=== PATIENT | female | born 1955 | race Caucasian/White ===

== ENCOUNTER 2016-12-12 05:52 | Day surgery (SDC) | payer OTHER ==
[~2016-12-12] VITALS: Ht 152.4 cm; Wt 72.0 kg
[2016-12-12] VITALS (17 sets, daily range): BP systolic 112–164; BP diastolic 55–89; PULSE 66–85; RESP 10–24
[~2016-12-12 05:52] MED LIST: LACTATED RINGER'S 1,000 ML IV* SCH
[2016-12-12] MEDS ORDERED: SITA100T8 PO (06:57)
[2016-12-12] MEDS ORDERED: PIOG30TA26 PO (06:57)
[2016-12-12] MEDS ORDERED: NITR-58 PO (06:57)
[2016-12-12] MEDS ORDERED: GLIP-95 PO (06:57)
[2016-12-12] MEDS ORDERED: PROPOFOL 20 ML ONE (07:42)
[2016-12-12] MEDS ORDERED: MIDAZOLAM 1 MG/ML 2 ML INJ ONE (07:42)
[2016-12-12] MEDS ORDERED: ETOMIDATE 20 MG INJ ONE (07:42)
[2016-12-12] MEDS ORDERED: FENTAnyl 50 MCG/ML VIAL ONE (07:42)
[2016-12-12] MEDS ORDERED: LIDOCAINE 1% (MDV) 20 ML INJ ONE (07:42)
--- NOTE | 2016-12-12 07:53 | HPN ---
Date/Time of Note Date/Time of Note DATE: 12/12/16 TIME: 07:53 Interval H&P Admission Note Pt. seen H&P reviewed: No system changes INDER WOMACK MD Dec 12, 2016 07:53
[2016-12-12] MEDS ORDERED: CEFAZOLIN 1 GM INJ ONE (08:12)
[2016-12-12] MEDS ORDERED: ONDANSETRON 4 MG INJ ONE (08:18)
[2016-12-12] MEDS ORDERED: FAMOTIDINE 20 MG INJ ONE (08:19)
[2016-12-12] MEDS ORDERED: MEPERIDINE 25 MG INJ ONE (10:40)
--- NOTE | 2016-12-12 10:54 | PD.PPDC ---
ANTHROPOLOGY PROFESSOR Discharge Instruction Diagnosis Final Diagnosis: prominent endometrium Condition Patient Condition: Stable Diet Diet: Resume Regular Diet Activity/Restrictions Activity: May Shower Restrictions: No Sexual Activity Nothing in the Vagina No [place] No Tampons, douche Follow-up Follow-up with Physician: 2, Week/Weeks Return to clinic for COOPER HELPER Instructions: Fever greater than 101 Chills Worsening abdominal pain Excessive Vaginal Bleeding More than 2 pads per hour Unable to tolerate diet INDER WOMACK MD Dec 12, 2016 10:54
[2016-12-12] MEDS ORDERED: ONDANSETRON 4 MG INJ IV PRN (11:00)
[2016-12-12] MEDS ORDERED: HYDROmorphONE (0.2 MG/ML) 10ML SYG IV PRN ×2 (11:00)
[2016-12-12] MEDS ORDERED: DIPHENHYDRAMINE 50 MG INJ IV PRN (11:00)
[2016-12-12] MEDS ORDERED: PROCHLORPERAZINE 10 MG INJ IV PRN (11:00)
[2016-12-12] MEDS ORDERED: MEPERIDINE 25 MG INJ IV PRN (11:00)
--- NOTE | 2016-12-17 04:34 | OPR ---
DATE OF OPERATION: 12/12/2016 PREOPERATIVE DIAGNOSIS: Permanent endometrium. POSTOPERATIVE DIAGNOSIS: Rule out endometrial cancer. PROCEDURE: Endoscopic colon polypectomy with stereoscopic dilatation curettage. ANESTHESIA: General. ANESTHESIOLOGIST: Dr. Barraza. SURGEON: Olivia Javed MD. LOCATOR: [place] from [facility]. OPERATIVE PROCEDURE: After appropriate induction of general anesthesia, the patient was placed in dorsal lithotomy position. Peroneal area was prepped and draped in usual aseptic manner. Bimanual examination, uterus appeared to be slightly increased in size, free mobile. There was no palpable adnexa pathology. A weighted speculum was introduced into the cervix which was parous, and there is polypoid tissue protruding through the cervical os, which was removed with packing forceps counter clockwise, and the tissue was sent to the pathologist. Traditional endocervical curettage was done and additional tissue was sent. Cervix was patent for size 6 hysteroscope. So, I decided to use a size 9 hysteroscope. Cervix was dilated up to 8, and the size 9 hysteroscope was trying to be introduced in the intrauterine cavity, which was failed many times because of the shape of the scope, which was not slanted. At that time, the traditional D and C was decided with obtaining a large amount of tissue. In the middle of the curettage, introducer was introduced to nh, which was inserted without any difficulty to uterine cavity, and the fundus was visualized, and abundant tissue was noted, which was also additionally curetted by using soft tissue resector, obtaining more tissue, which was sent to the pathologist. The procedure was completed. Instruments were removed from the operative field. ADDENDUM: After the hysteroscope was introduced into the cavity with all the preparation of in-flow and out-flow with a pressure set in the usual fashion, the fundus was visualized, and both ostium were visualized. Uterine cavity was curetted in all directions using soft tissue resector, obtaining more endometrial tissue, which was sent together with material from the traditional D and C. The procedure was completed, and instruments were removed from the operative field. Sponge count was taken, which was correct. The patient tolerated the procedure well and sent to the recovery room in stable condition. Fluid deficit was zero. Dictated By: Olivia Javed MD /geno/grs /Document#: [id number]
== END 2016-12-12 11:48 | disposition home or self-care (01) ==
LOC: SDS 05:52
PROVIDERS: ATTEND Obstetrics & Gynecology
DX: C54.1 Malignant neoplasm of endometrium (principal); E11.9 Type 2 diabetes mellitus without complications
CPT/HCPCS: 58558; 82962; 88305; J0690; J2175; J2250; J2405; Z7512; Z7610; J3010

== ENCOUNTER 2017-01-17 06:12 | Inpatient (IN) | payer OTHER ==
[~2017-01-17] VITALS: Ht 152.4 cm; Wt 73.0 kg
[2017-01-17] VITALS (25 sets, daily range): BP systolic 103–134; BP diastolic 51–76; PULSE 70–106; RESP 10–29; Ht 152.4 cm; Wt 73.0 kg
[~2017-01-17 06:12] MED LIST changes: +CEFAZOLIN 2 GM/50 ML (PMX) 50 ML IVPB SCH; +D5-NS + KCL 20 MEQ 1,000 ML IV SCH; +GLIP-95 PO; -LACTATED RINGER'S 1,000 ML IV* SCH; +Metronidazole 500 MG in NS 100 ML IVPB SCH; +NITR-58 PO; +PIOG30TA26 PO; +SITA100T8 PO
[2017-01-17] MEDS ORDERED: THROMBIN 5000 UNIT VIAL ONE ×2 (07:48→11:38)
[2017-01-17] MEDS ORDERED: METHYLENE BLUE 1% 10 ML INJ ONE (07:48)
[2017-01-17] MEDS ORDERED: VASOPRESSIN 20 UNITS INJ ONE (07:48)
[2017-01-17] MEDS ORDERED: CEFAZOLIN 1 GM INJ ONE (08:03)
[2017-01-17] MEDS ORDERED: PROPOFOL 100 ML ONE (08:03)
[2017-01-17] MEDS ORDERED: metroNIDAZOLE 500 MG/NS (PMX) 100 ML IVPB ONE (08:03)
[2017-01-17] MEDS ORDERED: ROCURONIUM 50 MG INJ ONE (08:03)
[2017-01-17] MEDS ORDERED: FENTAnyl 50 MCG/ML VIAL ONE (08:04)
[2017-01-17] MEDS ORDERED: morphine SULFATE/PF (10 MG/10 ML) INJ ONE (08:04)
[2017-01-17] MEDS ORDERED: MIDAZOLAM 1 MG/ML 2 ML INJ ONE (08:04)
[2017-01-17] MEDS ORDERED: ROPIVACAINE 0.5 % 30 ML VIAL ONE (08:08)
--- NOTE | 2017-01-17 08:25 | HPN ---
Date/Time of Note Date/Time of Note DATE: 01/17/17 TIME: 08:25 Interval H&P Admission Note Pt. seen H&P reviewed: No system changes BISMARK WESLEY MD Jan 17, 2017 08:25
[2017-01-17] MEDS ORDERED: PHENYLephrine (100 MCG/ML) 5ML SYG ONE (09:41)
[2017-01-17] MEDS ORDERED: MEPERIDINE 25 MG INJ IV PRN (10:30)
[2017-01-17] MEDS ORDERED: LABETALOL HCL 20MG INJ IV PRN (10:30)
[2017-01-17] MEDS ORDERED: FENTAnyl 50 MCG/ML VIAL IV PRN ×3 (10:30)
[2017-01-17] MEDS ORDERED: HYDROmorphONE (0.2 MG/ML) 10ML SYG IV PRN ×3 (10:30)
[2017-01-17] MEDS ORDERED: hydrALAzine 20 MG INJ IV PRN (10:30)
[2017-01-17] MEDS ORDERED: DIPHENHYDRAMINE 50 MG INJ IV PRN ×2 (10:30)
[2017-01-17] MEDS ORDERED: NALOXONE (0.4 MG/ML) INJ IV PRN (10:30)
[2017-01-17] MEDS ORDERED: ALBUMIN HUMAN 5% 250 ML IV PRN (10:30)
[2017-01-17] MEDS ORDERED: ONDANSETRON 4 MG INJ IV PRN (10:30)
[2017-01-17] MEDS ORDERED: EPHEDrine SULFATE 50 MG/5 ML SYG IV PRN (10:30)
[2017-01-17] MEDS ORDERED: METOCLOPRAMIDE 10 MG INJ IV PRN (10:30)
[2017-01-17] MEDS ORDERED: NALBUPHINE HCL (10 MG/1 ML) INJ IV PRN (10:30)
[2017-01-17] MEDS ORDERED: DEXAMETHASONE 4 MG/ML 1 ML INJ ONE (11:25)
[2017-01-17] MEDS ORDERED: ONDANSETRON 4 MG INJ ONE (11:25)
[2017-01-17] MEDS ORDERED: METOCLOPRAMIDE 10 MG INJ ONE (11:25)
[2017-01-17] MEDS ORDERED: SUGAMMADEX SODIUM 200 MG/2 ML VIAL IV ONE (12:03)
[2017-01-17] MEDS ORDERED: morphine 2 MG INJ IV PRN (12:30)
--- NOTE | 2017-01-17 12:39 | OPPN ---
Date/Time of Note Date/Time of Note DATE: 01/17/17 TIME: 12:36 Operative Report Preoperative Diagnosis Endometrial cancer Postoperative Diagnosis Same with path pending, ureteral stricture, morbid obesity, adhesions morbid obesity Operation/Procedure Performed TLH/BSO/P,A LND, UD x 2 Anesthesia Type: other Estimated blood loss: 50 - 100 ml's Transfusion Required: no Grafts/Implants: none Complications: no BISMARK WESLEY MD Jan 17, 2017 12:39
[2017-01-17 13:07] LABS: BASOPHILS % 0.3 % (0.0-2.0); EOSINOPHILS # 0.1 10^3/ul (0.0-0.5); EOSINOPHILS % 0.9 % (0.0-7.0); HEMATOCRIT 32.3 % (37.0-47.0); LYMPHOCYTES # 1.1 10^3/ul (0.8-2.9); MEAN CORPUSCULAR HGB CONC 34.1 g/dl (32.0-37.0); MEAN CORPUSCULAR VOLUME 93.9 fl (82.0-101.0); MEAN PLATELET VOLUME 8.9 fl (7.4-10.4); MONOCYTE # 0.3 10^3/ul (0.3-0.9); MONOCYTES % 3.8 % (0.0-11.0); NEUTROPHILS % 82.6 % (39.0-77.0); PLATELET COUNT 202 10^3/UL (140-415); RED BLOOD COUNT 3.44 10^6/ul (4.20-5.40); RED CELL DISTRIBUTION WIDTH 11.9 % (11.5-14.5)
[2017-01-17 13:44] LABS: CALCIUM 7.7 mg/dl (8.4-10.2); CREATININE 0.62 mg/dl (0.44-1.00); POTASSIUM 3.7 mmol/L (3.5-5.1)
[2017-01-17] MEDS ORDERED: CEFAZOLIN 1 GM in SOD CHLORIDE 0.9% 100 ML IVPB SCH (14:30)
[2017-01-17] MEDS ORDERED: GLUCOSE GEL 15 GRAM TUBE BUCCAL PRN (15:00)
[2017-01-17] MEDS ORDERED: GLUCAGON 1 MG INJ IM PRN (15:00)
[2017-01-17] MEDS ORDERED: DEXTROSE 50% 50 ML SYRINGE IV PRN ×2 (15:00)
[2017-01-17] MEDS ORDERED: GLUCOSE GEL 15 GRAM TUBE PO PRN ×2 (15:00)
[2017-01-17] MEDS: metroNIDAZOLE 500 MG/NS (PMX) 100 ML IVPB SCH ×2 (16:39→22:10)
[2017-01-17] MEDS: INSULIN ASPART [NOVOLOG] 3 ML PEN SC SCH ×2 (17:55→21:37)
--- NOTE | 2017-01-17 18:44 | HP ---
DATE OF ADMISSION: 01/17/2017 HISTORY OF PRESENT ILLNESS: The patient is a 61-year-old female with history of type 2 diabetes. She was diagnosed with endometrial cancer after she underwent biopsy by Dr. 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 The patient was referred to Dr. Melvin. She was brought into the hospital today and underwent total laparoscopic hysterectomy, bilateral salpingo-oophorectomy, lymph node dissection and ureter resection. The patient is being admitted for further care. The patient denies any chest pain. No reported nausea or vomiting. The patient does not have any focal weakness. The patient is breathing comfortably. No fever or chills or wheezing postoperatively. Other than postoperative pain, the rest of the review of systems are unremarkable. PAST MEDICAL HISTORY: As stated above. SOCIAL HISTORY: No smoking. No alcohol. ALLERGIES: NONE. FAMILY HISTORY: Noncontributory. MEDICATIONS: The patient was on oral hypoglycemic. PHYSICAL EXAMINATION: GENERAL: Patient conscious, awake, alert, fairly oriented. VITAL SIGNS: Blood pressure 128/69, pulse 76, respiration 19, temperature 98, O2 sat 96 percent on 2 L. HEENT: Atraumatic, normocephalic head. TMs normal. Oropharynx clear. NECK: Supple. No thyromegaly. CHEST: Fairly clear. CV: S1, S2 normal. No murmur. ABDOMEN: The patient is status post laparoscopic surgery. EXTREMITIES: Not edematous. Pulses palpable. SKIN: Without rash. NEUROLOGIC: The patient is awake, alert, fairly oriented. DATA: Sodium 140, potassium 3.7, BUN 9, creatinine 0.6, glucose 141, calcium 7.7. WBC 9, hemoglobin 11. IMPRESSION: 1. Endometrial cancer status post surgery. 2. Diabetes mellitus, type 2. PLAN: Patient admitted on medical floor. Patient will be kept on clear liquid diet, which will be advanced as per Dr. Melvin. Continue the lactate and IV cefazolin and metronidazole as per protocol. We will start her on moderate scale NovoLog coverage. We will hold off on her oral hypoglycemics. Will continue SCD for DVT prophylaxis. Dictated By: Kendall Ibarra MD /geno/sandra /Document#: [id number]
[2017-01-17] MEDS: CEFAZOLIN 1 GM in SOD CHLORIDE 0.9% 100 ML IVPB SCH (19:30)
[2017-01-17] MEDS: CEFAZOLIN 1 GM/50 ML (PMX) 50 ML IVPB SCH (20:19)
[2017-01-17] MEDS: POTASSIUM CHLORIDE 20 MEQ in LACTATED RINGER'S 1,000 ML IV SCH (20:30)
[2017-01-18] MEDS: POTASSIUM CHLORIDE 20 MEQ in LACTATED RINGER'S 1,000 ML IV SCH ×3 (01:36→22:34)
[2017-01-18] MEDS: ACCU-CHEK XX SCH (02:00)
[2017-01-18] MEDS: CEFAZOLIN 1 GM in SOD CHLORIDE 0.9% 100 ML IVPB SCH ×2 (03:30→11:30)
[2017-01-18] MEDS: CEFAZOLIN 1 GM/50 ML (PMX) 50 ML IVPB SCH ×2 (04:01→12:33)
[2017-01-18 04:07] VITALS: BP 119/58; PULSE 94; RESP 17
[2017-01-18] MEDS: ACETAMINOPHEN 325 MG TAB PO PRN (04:12)
[2017-01-18] MEDS: metroNIDAZOLE 500 MG/NS (PMX) 100 ML IVPB SCH (05:20)
[2017-01-18 05:25] LABS: BASOPHILS % 0.2 % (0.0-2.0); EOSINOPHILS % 0.1 % (0.0-7.0); HEMATOCRIT 35.9 % (37.0-47.0); HEMOGLOBIN 11.8 g/dl (12.0-16.0); LYMPHOCYTES # 1.2 10^3/ul (0.8-2.9); MEAN CORPUSCULAR HEMOGLOBIN 30.8 pg (29.0-33.0); MEAN CORPUSCULAR HGB CONC 32.9 g/dl (32.0-37.0); MEAN CORPUSCULAR VOLUME 93.7 fl (82.0-101.0); MEAN PLATELET VOLUME 9.1 fl (7.4-10.4); MONOCYTE # 0.7 10^3/ul (0.3-0.9); MONOCYTES % 7.4 % (0.0-11.0); NEUTROPHILS % 79.9 % (39.0-77.0); PLATELET COUNT 246 10^3/UL (140-415); RED BLOOD COUNT 3.83 10^6/ul (4.20-5.40); RED CELL DISTRIBUTION WIDTH 11.9 % (11.5-14.5); WHITE BLOOD COUNT 10.1 10^3/ul (4.8-10.8)
[2017-01-18 05:47] LABS: INR 1.19; PROTIME 15.2 Sec (12.2-14.2); PT RATIO 1.2
[2017-01-18 06:07] LABS: ALBUMIN 2.8 g/dl (3.3-4.9); BILIRUBIN,INDIRECT 0.5 mg/dl (0-1.1); BILIRUBIN,TOTAL 0.5 mg/dl (0.2-1.3); CALCIUM 8.2 mg/dl (8.4-10.2); CREATININE 0.6 mg/dl (0.44-1.00); MAGNESIUM 1.8 mg/dl (1.7-2.5); TOTAL PROTEIN 5.6 g/dl (6.1-8.1)
[2017-01-18] MEDS: INSULIN ASPART [NOVOLOG] 3 ML PEN SC SCH ×4 (07:50→21:00)
[2017-01-18 08:17] VITALS: BP 112/53; RESP 19
--- NOTE | 2017-01-18 10:52 | PN ---
Date/Time of Note Date/Time of Note DATE: 01/18/17 TIME: 10:52 Assessment/Plan VTE Prophylaxis VTE Prophylaxis Intervention: other Lines/Catheters IV Catheter Type (from Nrsg): Peripheral IV Urinary Cath still in place: Yes Reason Cath still needed: skin wounds contaminated by urine Assessment/Plan Chief Complaint/Hosp Course 1. Endometrial cancer status post surgery. 2. Diabetes mellitus, type 2. Problems: Subjective 24 Hr Interval Summary Free Text/Dictation Patient complain of abdominal pain Exam/Review of Systems Vital Signs Vitals Vital Signs Date Time Temp Pulse Resp B/P Pulse Ox O2 Delivery O2 Flow Rate FiO2 01/18/17 08:17 99.0 94 19 112/53 93 01/18/17 04:07 Nasal Cannula 2.0 Intake and Output 01/17/17 01/17/17 01/18/17 15:00 23:00 07:00 Intake Total 1400 ml 850 ml 800 ml Output Total 430 ml 2400 ml 2300 ml Balance 970 ml -1550 ml -1500 ml Exam Constitutional: well developed Head: atraumatic, normocephalic Neck: supple Respiratory: diminished breath sounds Cardiovascular: regular rate and rhythm Gastrointestinal: non-tender, soft Extremities: normal pulses Results Result Diagram: 01/18/17 0425 01/18/17 0425 Results 24 hrs Laboratory Tests Test 01/17/17 12:36 01/17/17 12:52 01/17/17 17:14 01/17/17 21:33 Bedside Glucose 145 214 233 H White Blood Count 9.0 Red Blood Count 3.44 L Hemoglobin 11.0 L Hematocrit 32.3 L Mean Corpuscular Volume 93.9 Mean Corpuscular Hemoglobin 32.0 Mean Corpuscular Hemoglobin Concent 34.1 Red Cell Distribution Width 11.9 Platelet Count 202 Mean Platelet Volume 8.9 Neutrophils % 82.6 H Lymphocytes % 12.0 L Monocytes % 3.8 Eosinophils % 0.9 Basophils % 0.3 Nucleated Red Blood Cells % 0.0 Neutrophils # (Manual) 7.4 Lymphocytes # 1.1 Monocytes # 0.3 Eosinophils # 0.1 Basophils # 0.0 Nucleated Red Blood Cells # 0.0 Sodium Level 140 Potassium Level 3.7 Chloride Level 109 Carbon Dioxide Level 25 Anion Gap 10 Blood Urea Nitrogen 9 Creatinine 0.62 Glucose Level 141 Calcium Level 7.7 L Test 01/18/17 01:48 01/18/17 04:25 01/18/17 08:39 Bedside Glucose 142 128 White Blood Count 10.1 Red Blood Count 3.83 L Hemoglobin 11.8 L Hematocrit 35.9 L Mean Corpuscular Volume 93.7 Mean Corpuscular Hemoglobin 30.8 Mean Corpuscular Hemoglobin Concent 32.9 Red Cell Distribution Width 11.9 Platelet Count 246 # Mean Platelet Volume 9.1 Neutrophils % 79.9 H Lymphocytes % 12.0 L Monocytes % 7.4 Eosinophils % 0.1 Basophils % 0.2 Nucleated Red Blood Cells % 0.0 Neutrophils # (Manual) 8.0 H Lymphocytes # 1.2 Monocytes # 0.7 Eosinophils # 0.0 Basophils # 0.0 Nucleated Red Blood Cells # 0.0 Prothrombin Time 15.2 H Prothrombin Time Ratio 1.2 INR International Normalized Ratio 1.19 Sodium Level 138 Potassium Level 4.0 Chloride Level 104 Carbon Dioxide Level 28 Anion Gap 10 Blood Urea Nitrogen 7 Creatinine 0.60 Glucose Level 128 Calcium Level 8.2 L Magnesium Level 1.8 Total Bilirubin 0.5 Direct Bilirubin 0.00 Indirect Bilirubin 0.5 Aspartate Amino Transf (AST/SGOT) 22 Alanine Aminotransferase (ALT/SGPT) 36 Alkaline Phosphatase 36 L Total Protein 5.6 L Albumin 2.8 L Globulin 2.80 Albumin/Globulin Ratio 1.00 Medications Medications Current Medications Metronidazole (Flagyl 500 Mg (Pmx)) 100 ml @ 100 mls/hr Q8H IVPB Last administered on 01/18/17 05:20; Admin Dose 100 MLS/HR; Start 01/17/17 at 14:30; Stop 01/18/17 at 14:29 Morphine Sulfate (morphine) 2 mg Q2H PRN IV PAIN LEVEL 6-10; Start 01/17/17 at 12:30 Acetaminophen/ Hydrocodone Bitart ([place] (5/325)) 1 tab Q6H PRN PO PAIN LEVEL 6 -10; Start 01/17/17 at 12:30 Acetaminophen 650 mg 650 mg Q6H PRN PO PAIN AND OR ELEVATED TEMP Last administered on 01/18/17 04:12; Admin Dose 650 MG; Start 01/17/17 at 12:30 Potassium Chloride/Lactated Ringer's (KCl/Lr) 1,010 ml @ 100 mls/hr Q10H6M IV Last administered on 01/18/17 09:40; Admin Dose 100 MLS/HR; Start 01/17/17 at 15: 30 Diagnostic Test (Pha) (Accu-Chek) 1 ea 02 XX ; Start 01/18/17 at 02:00 Miscellaneous Information 1 ea NOTE XX ; Start 01/17/17 at 15:00 Glucose (Glutose) 15 gm Q15M PRN PO DECREASED GLUCOSE; Start 01/17/17 at 15:00 Glucose (Glutose) 22.5 gm Q15M PRN PO DECREASED GLUCOSE; Start 01/17/17 at 15:00 Dextrose (D50w Syringe) 25 ml Q15M PRN IV DECREASED GLUCOSE; Start 01/17/17 at 15:00 Dextrose (D50w Syringe) 50 ml Q15M PRN IV DECREASED GLUCOSE; Start 01/17/17 at 15:00 Glucagon (Glucagen) 1 mg Q15M PRN IM DECREASED GLUCOSE; Start 01/17/17 at 15:00 Glucose 15 gm 15 gm Q15M PRN BUCCAL DECREASED GLUCOSE; Start 01/17/17 at 15:00 Cefazolin Sodium 1 gm/Sodium Chloride 100 ml @ 100 mls/hr Q8H IVPB ; Start 01/17 at 19:30; Stop 01/18/17 at 19:29 Cefazolin Sodium (Ancef 1 Gm/50 ml (Pmx)) 50 ml @ 100 mls/hr Q8H IVPB Last administered on 01/18/17 04:01; Admin Dose 100 MLS/HR; Start 01/17/17 at 20:00; Stop 01/18/17 at 12:29 KRISTOPHER JUAREZ Jan 18, 2017 10:52
[2017-01-18] MEDS: HYDROCODONE/APAP (5/325) TAB PO PRN (12:33)
[2017-01-18 14:00] VITALS: BP 109/60; RESP 19
[2017-01-18 20:00] VITALS: BP 120/58; RESP 18
--- NOTE | 2017-01-18 20:40 | OPR ---
Date/Time of Note Date/Time of Note DATE: 01/18/17 TIME: 20:39 Operative Report Free Text/Dictation OPERATIVE REPORT [facility] Name: Radha Randhawa Medical Date: 01/17/17 Preoperative Diagnosis: 1-Endometrial cancer grade 3 Postoperative Diagnosis: 1-Endometrial cancer with final pathology pending 2- Morbid obesity Procedures: 1- Total laparoscopic hysterectomy with bilateral salpingoophorectomy 2- Bilateral ureteral dissection with repositioning 3- Laparoscopic pelvic and aortic lymph node dissection 4- Retroperitoneal uterine artery ligation adjacent to hypogastric artery Surgeon: Dr. Melvin Food Preparation Worker: Dr. Kaykay Yee Anaesthesia: General with regional Indications for Procedure: This 61- year old patient had a grade 3 endometrial cancer without evidence of metastatic disease preoperatively and after discussions of options with risks and benefits it was determined that a laparoscopic hysterectomy with bilateral salpingoophorectomy and pelvic/aortic lymph node dissection would be completed for the purposes of treatment and possibly planning additional adjuvant therapy. The pelvic and LND was performed in lieu of final grading not being equivalent to preoperative D&C grade 18-25% of the time and frozen section not being more that 80% reliable in determining grade and depth of invasion; therefore complete staging is performed to determine postoperative management unless there is a significant contraindication. Name: Radha Randhawa Medical Intraoperative Findings and Summary of Procedure: After placing the Trocars and exploration we noted the anatomic significance of morbid obesity with significant adhesions of the adnexia to the sidewalls, more so than usual. The TLH/BSO was then performed without incident but required a ureteral dissection due to anatomic issues of the adnexia adherent to the sidewalls and distortion of retroperitoneal anatomy due to retroperitoneal anatomic distortion due to morbid obesity requiring a retroperitoneal uterine artery ligation adjacent to hypogastric artery for required hemostasis, with the laparoscopic LND being subsequently performed with a finding of grossly negative nodes pathology pending. The patient will stay a minimum of one night to observe for recovery of from anesthesia and confirm stable hemoglobin and hematocrit with the necessity of confirmation of some GI recovery and probably need an addition night as well. Findings and Procedure: After being prepped and draped in the usual manner an EEA sizer and pneumo- occluder was inserted vaginally. A 5-millimeter trocar was then placed periumbilically without incident. Subsequently, we insufflated and placed two 12- millimeter trocars laterally and a 12-millimeter trocar suprapubically, as well as an additional 5-mm trocar cephlad to the umbilicus. At this time morbid obesity was noted and with fan retractors used for exposure multiple pelvic adhesions were lysed with sharp dissection and the Omni if not adjacent to serosa. Subsequently we explored and noted a small uterus with adnexia very adherent to the sidewalls due to apparent inflammation and old scar tissue and the retroperitoneal anatomy further distorted due to morbid obesity. Initially the right round ligament was cauterized and transected with the Thunderbeat and the retroperitoneal space further opened parallel to the IP ligament and laterally with the same devise. The right ureter was identified and due to the aforementioned distortion from adherent adnexia was dissected laterally with the Omni and the endo-dissector Name: Radha [facility] while visualized with a fan retractor. After lateralizing the ureter the uterine artery was identified and clipped adjacent to the hypogastric artery due to the anatomic distortion and hypervascularity lateral to the ureter. Hence, a space was developed the broad ligament and the right IP ligament was cauterized and transected with a Thunderbeat after which the uterus was retracted medially and the bladder flap was partly developed with the Gyrus bipolar cutting forceps and the Omni. We then used a 10-mm ratcheted endo- grasper placed through the 12-mm suprapubic trocar to manipulate the uterus and with the EEA sizer uterus was retracted and left round ligament was cauterized and transected with the Thunderbeat and the retroperitoneal space further opened parallel to the IP ligament an laterally with the same devise. The left ureter was identified and due to the aforementioned distortion was dissected laterally with the Omni and the endo-dissector as done contralaterally. After lateralizing the ureter within obesity the uterine artery was identified and clipped adjacent to the hypogastric artery due to the uterine enlargement and hypervascularity lateral to the ureter. Hence, a space was developed in the broad ligament and the left IP ligament was cauterized and transected with a Thunderbeat after which the uterus was retracted medially, allowing development or the bladder flap uneventfully with a Thunderbeat and blunt dissection. Subsequently, the right uterine artery was transected with a Thunderbeat perpendicular to the distal lower uterine segment and the Cardinal ligament and utero-sacral ligament were both transected with an Omni and Thunderbeat parallel to the lower uterine segment and cervix. An identical series of steps were taken on the left side. The anterior and posterior colpotomies were accomplished with a Thunderbeat anteriorly and posteriorly, and continued around the sides as the specimen was removed through the vagina uneventfully. The vagina was closed with interrupted 0 Vicryl suture and continuous 2-0 v-lock suture. At this time the pelvic and aortic LND were completed after confirming hemostasis. Initially a fan retractor was used for exposure and secured to the Jesse arm and lymph node tissue with adipose tissue adjacent to the right external iliac artery and vein, hypogastric artery and vein, as well as obturator fossa were removed with sharp and blunt dissection, using the Thunderbeat or Gyrus bipolar Name: Radha [facility] Omni for hemostasis and lymphostasis. The real tissue was grasped and subsequently placed under tractions with the Omni and the Thunderbeat then being used for the hemostasis and lymphostasis in the process of removal. The dissection was continued to include real tissue adjacent to the common iliac vessels. The obturator nerve was identified and adjacent real tissue removed with blunt dissection, with the Thunderbeat or Gyrus bipolar Omni used for lymphostasis and hemostasis as needed. The fan retractors were adjusted in that a suprapubically placed fan retracted the broad ligament and ureter with ileum while the right lateral trocar was used for a fan to retract the cecum and ascending colon allowing any real tissue adjacent to the vena cava, as well as aorto-caval nodes to be removed using identical technique. Garment Finisher vessels were addressed with the Thunderbeat or Gyrus bipolar Omni. At this time we placed the fan retractors for contralateral exposure. Subsequently, lymph node tissue adjacent to the left external iliac artery and vein, hypogastric artery and vein, as well as obturator fossa were removed with sharp and blunt dissection, the Thunderbeat or Gyrus bipolar Omni for hemostasis and lymphostasis, with a technique identical to the right side. The dissection was continued to include real tissue adjacent to the common iliac vessels. Subsequently, the fan retractors were adjusted and any real tissue adjacent to the aorta were dissected using similar technique. After irrigating and assuring hemostasis the 12 millimeter trocars were removed and the fascia was closed with 0-vicryl using an endo-close devise. The gas was removed and the skin of all sites then closed with subcutaneous interrupted 5-0 Monocryl suture suture. The EBL was 150cc and the patient tolerated the procedure well and left the OR in good condition. Bismark Melvin M.D. Anesthesia Type: other Estimated Blood Loss: 50 - 100 ml's Transfusion Required: no Complications: no BISMARK MELVIN MD Jan 18, 2017 20:40
--- NOTE | 2017-01-18 20:42 | PN ---
Date/Time of Note Date/Time of Note DATE: 01/18/17 TIME: 20:40 Assessment/Plan VTE Prophylaxis VTE Prophylaxis Intervention: SCD's Lines/Catheters IV Catheter Type (from Nrsg): Peripheral IV Urinary Cath still in place: No Subjective 24 Hr Interval Summary Free Text/Dictation + flatus and OOB. Exam/Review of Systems Vital Signs Vitals Vital Signs Date Time Temp Pulse Resp B/P Pulse Ox O2 Delivery O2 Flow Rate FiO2 01/18/17 14:00 98.6 100 19 109/60 94 01/18/17 04:07 Nasal Cannula 2.0 Intake and Output 01/17/17 01/17/17 01/18/17 15:00 23:00 07:00 Intake Total 1400 ml 850 ml 800 ml Output Total 430 ml 2400 ml 2300 ml Balance 970 ml -1550 ml -1500 ml Exam Resp-clear CVS- NSR Abd- NT and clean Ext- NT no edema Results Result Diagram: 01/18/17 0425 01/18/17 0425 Results 24 hrs Laboratory Tests Test 01/17/17 21:33 01/18/17 01:48 01/18/17 04:25 01/18/17 08:39 Bedside Glucose 233 H 142 128 White Blood Count 10.1 Red Blood Count 3.83 L Hemoglobin 11.8 L Hematocrit 35.9 L Mean Corpuscular Volume 93.7 Mean Corpuscular Hemoglobin 30.8 Mean Corpuscular Hemoglobin Concent 32.9 Red Cell Distribution Width 11.9 Platelet Count 246 # Mean Platelet Volume 9.1 Neutrophils % 79.9 H Lymphocytes % 12.0 L Monocytes % 7.4 Eosinophils % 0.1 Basophils % 0.2 Nucleated Red Blood Cells % 0.0 Neutrophils # (Manual) 8.0 H Lymphocytes # 1.2 Monocytes # 0.7 Eosinophils # 0.0 Basophils # 0.0 Nucleated Red Blood Cells # 0.0 Prothrombin Time 15.2 H Prothrombin Time Ratio 1.2 INR International Normalized Ratio 1.19 Sodium Level 138 Potassium Level 4.0 Chloride Level 104 Carbon Dioxide Level 28 Anion Gap 10 Blood Urea Nitrogen 7 Creatinine 0.60 Glucose Level 128 Calcium Level 8.2 L Magnesium Level 1.8 Total Bilirubin 0.5 Direct Bilirubin 0.00 Indirect Bilirubin 0.5 Aspartate Amino Transf (AST/SGOT) 22 Alanine Aminotransferase (ALT/SGPT) 36 Alkaline Phosphatase 36 L Total Protein 5.6 L Albumin 2.8 L Globulin 2.80 Albumin/Globulin Ratio 1.00 Test 01/18/17 12:28 01/18/17 17:40 Bedside Glucose 160 161 Medications Medications Current Medications Morphine Sulfate (morphine) 2 mg Q2H PRN IV PAIN LEVEL 6-10 Last administered on 01/18/17 18:16; Admin Dose 2 MG; Start 01/17/17 at 12:30 Acetaminophen/ Hydrocodone Bitart ([place] (5/325)) 1 tab Q6H PRN PO PAIN LEVEL 6 -10 Last administered on 01/18/17 12:33; Admin Dose 1 TAB; Start 01/17/17 at 12: 30 Acetaminophen 650 mg 650 mg Q6H PRN PO PAIN AND OR ELEVATED TEMP Last administered on 01/18/17 04:12; Admin Dose 650 MG; Start 01/17/17 at 12:30 Potassium Chloride/Lactated Ringer's (KCl/Lr) 1,010 ml @ 60 mls/hr [id number] IV Last administered on 01/18/17 09:40; Admin Dose 100 MLS/HR; Start 01/17/17 at 15: 30 Diagnostic Test (Pha) (Accu-Chek) 1 ea 02 XX ; Start 01/18/17 at 02:00 Miscellaneous Information 1 ea NOTE XX ; Start 01/17/17 at 15:00 Glucose (Glutose) 15 gm Q15M PRN PO DECREASED GLUCOSE; Start 01/17/17 at 15:00 Glucose (Glutose) 22.5 gm Q15M PRN PO DECREASED GLUCOSE; Start 01/17/17 at 15:00 Dextrose (D50w Syringe) 25 ml Q15M PRN IV DECREASED GLUCOSE; Start 01/17/17 at 15:00 Dextrose (D50w Syringe) 50 ml Q15M PRN IV DECREASED GLUCOSE; Start 01/17/17 at 15:00 Glucagon (Glucagen) 1 mg Q15M PRN IM DECREASED GLUCOSE; Start 01/17/17 at 15:00 Glucose (Glutose) 15 gm Q15M PRN BUCCAL DECREASED GLUCOSE; Start 01/17/17 at 15: 00 BISMARK WESLEY MD Jan 18, 2017 20:42
[2017-01-18] MEDS: ZOLPIDEM 5 MG TAB PO PRN (21:45)
[2017-01-19] MEDS: ACCU-CHEK XX SCH (02:00)
[2017-01-19] MEDS: HYDROCODONE/APAP (5/325) TAB PO PRN ×2 (07:13→22:29)
[2017-01-19 08:38] VITALS: BP 103/59; RESP 18
[2017-01-19] MEDS: INSULIN ASPART [NOVOLOG] 3 ML PEN SC SCH ×4 (08:51→21:00)
[2017-01-19] MEDS: POTASSIUM CHLORIDE 20 MEQ in LACTATED RINGER'S 1,000 ML IV SCH ×2 (08:55→15:20)
--- NOTE | 2017-01-19 11:38 | PN ---
Date/Time of Note Date/Time of Note DATE: 01/19/17 TIME: 11:37 Assessment/Plan VTE Prophylaxis VTE Prophylaxis Intervention: other Lines/Catheters IV Catheter Type (from Nrs): Peripheral IV Urinary Cath still in place: No Assessment/Plan Chief Complaint/Hosp Course 1. Endometrial cancer status post surgery. 2. Diabetes mellitus, type 2. Problems: Subjective 24 Hr Interval Summary Free Text/Dictation Patient still has some pain Exam/Review of Systems Vital Signs Vitals Vital Signs Date Time Temp Pulse Resp B/P Pulse Ox O2 Delivery O2 Flow Rate FiO2 01/19/17 08:38 99.7 93 18 103/59 96 01/18/17 04:07 Nasal Cannula 2.0 Intake and Output 01/18/17 01/18/17 01/19/17 15:00 23:00 07:00 Intake Total 1060 ml 1200 ml 520 ml Output Total 1200 ml 700 ml Balance 1060 ml 0 ml -180 ml Exam Constitutional: well developed Head: atraumatic, normocephalic Neck: supple Respiratory: clear to auscultation Cardiovascular: regular rate and rhythm Gastrointestinal: non-tender, soft Extremities: normal pulses Results Result Diagram: 01/18/17 0425 01/18/17 0425 Results 24 hrs Laboratory Tests Test 01/18/17 12:28 01/18/17 17:40 01/18/17 21:28 01/19/17 08:42 Bedside Glucose 160 161 162 165 Medications Medications Current Medications Morphine Sulfate (morphine) 2 mg Q2H PRN IV PAIN LEVEL 6-10 Last administered on 01/18/17 18:16; Admin Dose 2 MG; Start 01/17/17 at 12:30 Acetaminophen/ Hydrocodone Bitart ([place] (5/325)) 1 tab Q6H PRN PO PAIN LEVEL 6 -10 Last administered on 01/19/17 07:13; Admin Dose 1 TAB; Start 01/17/17 at 12: 30 Acetaminophen 650 mg 650 mg Q6H PRN PO PAIN AND OR ELEVATED TEMP Last administered on 01/18/17 04:12; Admin Dose 650 MG; Start 01/17/17 at 12:30 Potassium Chloride/Lactated Ringer's (KCl/Lr) 1,010 ml @ 60 mls/hr [id number] IV Last administered on 01/19/17 08:55; Admin Dose 60 MLS/HR; Start 01/17/17 at 15: 30 Diagnostic Test (Pha) (Accu-Chek) 1 ea 02 XX ; Start 01/18/17 at 02:00 Miscellaneous Information 1 ea NOTE XX ; Start 01/17/17 at 15:00 Glucose (Glutose) 15 gm Q15M PRN PO DECREASED GLUCOSE; Start 01/17/17 at 15:00 Glucose (Glutose) 22.5 gm Q15M PRN PO DECREASED GLUCOSE; Start 01/17/17 at 15:00 Dextrose (D50w Syringe) 25 ml Q15M PRN IV DECREASED GLUCOSE; Start 01/17/17 at 15:00 Dextrose (D50w Syringe) 50 ml Q15M PRN IV DECREASED GLUCOSE; Start 01/17/17 at 15:00 Glucagon (Glucagen) 1 mg Q15M PRN IM DECREASED GLUCOSE; Start 01/17/17 at 15:00 Glucose (Glutose) 15 gm Q15M PRN BUCCAL DECREASED GLUCOSE; Start 01/17/17 at 15: 00 Zolpidem Tartrate (Ambien) 5 mg HS PRN PO INSOMNIA Last administered on t 21:45; Admin Dose 5 MG; Start 01/18/17 at 22:00 KRISTOPHER JUAREZ Jan 19, 2017 11:38
[2017-01-19 11:56] LABS: ADD UMIC YES; UR ASCORBIC ACID NEGATIVE (NEGATIVE); UR BACTERIA FEW /HPF (NONE SEEN); UR BILIRUBIN (Dip) NEGATIVE (NEGATIVE); UR BLOOD (Dip) 3+ mg/dL (NEGATIVE); UR CLARITY CLOUDY (CLEAR); UR COLOR YELLOW (YELLOW); UR GLUCOSE (Dip) 1+ mg/dL (NEGATIVE); UR KETONES (Dip) 2+ mg/dL (NEGATIVE); UR LEUKOCYTE ESTERASE (Dip) 3+ Leu/ul (NEGATIVE); UR MUCUS FEW /HPF (NONE SEEN); UR NITRITE (Dip) NEGATIVE (NEGATIVE); UR RBC 150 /HPF (0-5); UR SPECIFIC GRAVITY (Dip) 1.018 (1.003-1.030); UR SQUAMOUS EPITHELIAL CELL FEW /HPF (FEW); UR TOTAL PROTEIN (Dip) 1+ mg/dl (NEGATIVE); UR UROBILINOGEN (Dip) NEGATIVE (NEGATIVE); UR WBC CLUMPS FEW /HPF (NONE SEEN)
[2017-01-19] MEDS: ACETAMINOPHEN 325 MG TAB PO PRN (13:30)
[2017-01-19 14:26] VITALS: BP 127/57; RESP 18
[2017-01-19 20:55] VITALS: BP 128/64; RESP 20
[2017-01-19] MEDS: ZOLPIDEM 5 MG TAB PO PRN (21:04)
--- NOTE | 2017-01-19 23:11 | PN ---
Date/Time of Note Date/Time of Note DATE: 01/19/17 TIME: 23:08 Assessment/Plan VTE Prophylaxis VTE Prophylaxis Intervention: SCD's Lines/Catheters IV Catheter Type (from Nrsg): Peripheral IV Urinary Cath still in place: No Assessment/Plan Chief Complaint/Hosp Course endometrial ca Problems: Assessment/Plan A- doing well P-possibly d/c a.m. Subjective 24 Hr Interval Summary Free Text/Dictation +bm tavo diet. Exam/Review of Systems Vital Signs Vitals Vital Signs Date Time Temp Pulse Resp B/P Pulse Ox O2 Delivery O2 Flow Rate FiO2 01/19/17 20:55 98.1 82 20 128/64 97 01/18/17 04:07 Nasal Cannula 2.0 Intake and Output 01/18/17 01/18/17 01/19/17 15:00 23:00 07:00 Intake Total 1060 ml 1200 ml 520 ml Output Total 1200 ml 700 ml Balance 1060 ml 0 ml -180 ml Exam Resp- clear CVS- NSR Abd- NT with clean wound, Ext - NT' no edema Results Result Diagram: 01/18/17 0425 01/18/17 0425 Results 24 hrs Laboratory Tests Test 01/19/17 08:42 01/19/17 10:00 01/19/17 12:31 01/19/17 17:57 Bedside Glucose 165 195 229 H Urine Color YELLOW Urine Clarity CLOUDY A Urine pH 5.0 Urine Specific [place] 1.018 Urine Ketones 2+ H Urine Nitrite NEGATIVE Urine Bilirubin NEGATIVE Urine Urobilinogen NEGATIVE Urine Leukocyte Esterase 3+ H Urine Microscopic RBC 150 H Urine Microscopic WBC > 182 H Urine Squamous Epithelial Cells FEW Urine Bacteria FEW A Urine Mucus FEW A Urine Hemoglobin 3+ H Urine Glucose 1+ H Urine Total Protein 1+ H Test 01/19/17 21:01 Bedside Glucose 233 H Medications Medications Current Medications Morphine Sulfate (morphine) 2 mg Q2H PRN IV PAIN LEVEL 6-10 Last administered on 01/18/17 18:16; Admin Dose 2 MG; Start 01/17/17 at 12:30 Acetaminophen/ Hydrocodone Bitart ([place] (5/325)) 1 tab Q6H PRN PO PAIN LEVEL 6 -10 Last administered on 01/19/17 22:29; Admin Dose 1 TAB; Start 01/17/17 at 12: 30 Acetaminophen 650 mg 650 mg Q6H PRN PO PAIN AND OR ELEVATED TEMP Last administered on 01/19/17 13:30; Admin Dose 650 MG; Start 01/17/17 at 12:30 Potassium Chloride/Lactated Ringer's (KCl/Lr) 1,010 ml @ 60 mls/hr [id number] IV Last administered on 01/19/17 08:55; Admin Dose 60 MLS/HR; Start 01/17/17 at 15: 30 Diagnostic Test (Pha) (Accu-Chek) 1 ea 02 XX ; Start 01/18/17 at 02:00 Miscellaneous Information 1 ea NOTE XX ; Start 01/17/17 at 15:00 Glucose (Glutose) 15 gm Q15M PRN PO DECREASED GLUCOSE; Start 01/17/17 at 15:00 Glucose (Glutose) 22.5 gm Q15M PRN PO DECREASED GLUCOSE; Start 01/17/17 at 15:00 Dextrose (D50w Syringe) 25 ml Q15M PRN IV DECREASED GLUCOSE; Start 01/17/17 at 15:00 Dextrose (D50w Syringe) 50 ml Q15M PRN IV DECREASED GLUCOSE; Start 01/17/17 at 15:00 Glucagon (Glucagen) 1 mg Q15M PRN IM DECREASED GLUCOSE; Start 01/17/17 at 15:00 Glucose (Glutose) 15 gm Q15M PRN BUCCAL DECREASED GLUCOSE; Start 01/17/17 at 15: 00 Zolpidem Tartrate (Ambien) 5 mg HS PRN PO INSOMNIA Last administered on 21:04; Admin Dose 5 MG; Start 01/18/17 at 22:00 BISMARK WESLEY MD Jan 19, 2017 23:11
[2017-01-20] MEDS: ACCU-CHEK XX SCH (02:00)
[2017-01-20 05:10] LABS: BASOPHILS % 0.4 % (0.0-2.0); EOSINOPHILS # 0.2 10^3/ul (0.0-0.5); HEMATOCRIT 39.7 % (37.0-47.0); LYMPHOCYTES # 1.6 10^3/ul (0.8-2.9); LYMPHOCYTES % 17.3 % (15.0-51.0); MEAN CORPUSCULAR HEMOGLOBIN 30.7 pg (29.0-33.0); MEAN CORPUSCULAR HGB CONC 32.7 g/dl (32.0-37.0); MEAN CORPUSCULAR VOLUME 93.9 fl (82.0-101.0); MONOCYTE # 0.5 10^3/ul (0.3-0.9); MONOCYTES % 5.7 % (0.0-11.0); NEUTROPHILS % 74.1 % (39.0-77.0); PLATELET COUNT 266 10^3/UL (140-415); RED BLOOD COUNT 4.23 10^6/ul (4.20-5.40); RED CELL DISTRIBUTION WIDTH 11.9 % (11.5-14.5); WHITE BLOOD COUNT 9.1 10^3/ul (4.8-10.8)
[2017-01-20 05:36] LABS: CALCIUM 8.3 mg/dl (8.4-10.2); CREATININE 0.5 mg/dl (0.44-1.00); POTASSIUM 4.2 mmol/L (3.5-5.1)
[2017-01-20] MEDS ORDERED: ACETAMINOPHEN 1000 MG/100 ML IVPB ONE (07:00)
[2017-01-20] MEDS ORDERED: ROCURONIUM 50 MG INJ ONE (07:00)
[2017-01-20 08:00] VITALS: BP 135/67; RESP 18
[2017-01-20] MEDS: POTASSIUM CHLORIDE 20 MEQ in LACTATED RINGER'S 1,000 ML IV SCH (08:14)
[2017-01-20] MEDS: INSULIN ASPART [NOVOLOG] 3 ML PEN SC SCH ×2 (08:59→12:46)
--- NOTE | 2017-01-20 10:54 | PN ---
Date/Time of Note Date/Time of Note DATE: 01/20/17 TIME: 10:53 Assessment/Plan VTE Prophylaxis VTE Prophylaxis Intervention: other Lines/Catheters IV Catheter Type (from Nrs): [place] Urinary Cath still in place: No Assessment/Plan Chief Complaint/Hosp Course 1. Endometrial cancer status post surgery. 2. Diabetes mellitus, type 2. Problems: Subjective 24 Hr Interval Summary Free Text/Dictation Patient still has some pain Exam/Review of Systems Vital Signs Vitals Vital Signs Date Time Temp Pulse Resp B/P Pulse Ox O2 Delivery O2 Flow Rate FiO2 01/20/17 08:00 98.9 87 18 135/67 95 01/18/17 04:07 Nasal Cannula 2.0 Intake and Output 01/19/17 01/19/17 01/20/17 15:00 23:00 07:00 Intake Total 650 ml 1220 ml 1190 ml Output Total 200 ml 800 ml Balance 650 ml 1020 ml 390 ml Exam Constitutional: well developed Head: atraumatic, normocephalic Neck: supple Respiratory: clear to auscultation Cardiovascular: regular rate and rhythm Gastrointestinal: non-tender, soft Extremities: normal pulses Results Result Diagram: 01/20/17 0450 01/20/17 0450 Results 24 hrs Laboratory Tests Test 01/19/17 12:31 01/19/17 17:57 01/19/17 21:01 01/20/17 04:50 Bedside Glucose 195 229 H 233 H White Blood Count 9.1 Red Blood Count 4.23 Hemoglobin 13.0 Hematocrit 39.7 Mean Corpuscular Volume 93.9 Mean Corpuscular Hemoglobin 30.7 Mean Corpuscular Hemoglobin Concent 32.7 Red Cell Distribution Width 11.9 Platelet Count 266 Mean Platelet Volume 9.0 Neutrophils % 74.1 Lymphocytes % 17.3 Monocytes % 5.7 Eosinophils % 2.0 Basophils % 0.4 Nucleated Red Blood Cells % 0.0 Neutrophils # (Manual) 6.7 Lymphocytes # 1.6 Monocytes # 0.5 Eosinophils # 0.2 Basophils # 0.0 Nucleated Red Blood Cells # 0.0 Sodium Level 140 Potassium Level 4.2 Chloride Level 108 Carbon Dioxide Level 26 Anion Gap 10 Blood Urea Nitrogen 7 Creatinine 0.50 Glucose Level 164 Calcium Level 8.3 L Test 01/20/17 08:53 Bedside Glucose 154 Medications Medications Current Medications Morphine Sulfate (morphine) 2 mg Q2H PRN IV PAIN LEVEL 6-10 Last administered on 01/18/17 18:16; Admin Dose 2 MG; Start 01/17/17 at 12:30 Acetaminophen/ Hydrocodone Bitart ([place] (5/325)) 1 tab Q6H PRN PO PAIN LEVEL 6 -10 Last administered on 01/19/17 22:29; Admin Dose 1 TAB; Start 01/17/17 at 12: 30 Acetaminophen 650 mg 650 mg Q6H PRN PO PAIN AND OR ELEVATED TEMP Last administered on 01/19/17 13:30; Admin Dose 650 MG; Start 01/17/17 at 12:30 Potassium Chloride/Lactated Ringer's (KCl/Lr) 1,010 ml @ 60 mls/hr [id number] IV Last administered on 01/19/17 08:55; Admin Dose 60 MLS/HR; Start 01/17/17 at 15: 30 Diagnostic Test (Pha) (Accu-Chek) 1 ea 02 XX ; Start 01/18/17 at 02:00 Miscellaneous Information 1 ea NOTE XX ; Start 01/17/17 at 15:00 Glucose (Glutose) 15 gm Q15M PRN PO DECREASED GLUCOSE; Start 01/17/17 at 15:00 Glucose (Glutose) 22.5 gm Q15M PRN PO DECREASED GLUCOSE; Start 01/17/17 at 15:00 Dextrose (D50w Syringe) 25 ml Q15M PRN IV DECREASED GLUCOSE; Start 01/17/17 at 15:00 Dextrose (D50w Syringe) 50 ml Q15M PRN IV DECREASED GLUCOSE; Start 01/17/17 at 15:00 Glucagon (Glucagen) 1 mg Q15M PRN IM DECREASED GLUCOSE; Start 01/17/17 at 15:00 Glucose (Glutose) 15 gm Q15M PRN BUCCAL DECREASED GLUCOSE; Start 01/17/17 at 15: 00 Zolpidem Tartrate (Ambien) 5 mg HS PRN PO INSOMNIA Last administered on 21:04; Admin Dose 5 MG; Start 01/18/17 at 22:00 KRISTOPHER JUAREZ Jan 20, 2017 10:53
--- NOTE | 2017-01-21 18:19 | OPPN ---
Date/Time of Note Date/Time of Note DATE: 01/21/17 TIME: 18:18 Post-Anesthesia Notes Post-Anesthesia Note Last documented vital signs Vital Signs Date Time Temp Pulse Resp B/P Pulse Ox O2 Delivery O2 Flow Rate FiO2 01/20/17 08:00 98.9 87 18 135/67 95 01/18/17 04:07 Nasal Cannula 2.0 Activity: WNL Respiratory function: WNL Cardiovascular function: WNL Mental status: Baseline Pain reasonably controlled: Yes Hydration appropriate: Yes Nausea/Vomiting absent: Yes BAUTISTA DIALLO MD Jan 21, 2017 18:19
== END 2017-01-20 13:43 | disposition home or self-care (01) | DRG 735 ==
LOC: REC 06:12 → MS1 16:04
PROC: 0UT9FZZ Resection of Uterus, Via Natural or Artificial Opening With Percutaneous Endoscopic Assistance (ICD-10-PCS; principal; 2017-01-18)
PROC: 07TC4ZZ Resection of Pelvis Lymphatic, Percutaneous Endoscopic Approach (ICD-10-PCS; 2017-01-18)
PROC: 0UTC7ZZ Resection of Cervix, Via Natural or Artificial Opening (ICD-10-PCS; 2017-01-18)
PROC: 0UT2FZZ Resection of Bilateral Ovaries, Via Natural or Artificial Opening With Percutaneous Endoscopic Assistance (ICD-10-PCS; 2017-01-18)
PROC: 0UT7FZZ Resection of Bilateral Fallopian Tubes, Via Natural or Artificial Opening With Percutaneous Endoscopic Assistance (ICD-10-PCS; 2017-01-18)
PROC: 0TS84ZZ Reposition Bilateral Ureters, Percutaneous Endoscopic Approach (ICD-10-PCS; 2017-01-18)
DX: C54.1 Malignant neoplasm of endometrium (principal); E66.01 Morbid (severe) obesity due to excess calories; I10 Essential (primary) hypertension; N13.5 Crossing vessel and stricture of ureter without hydronephrosis; Z85.828 Personal history of other malignant neoplasm of skin; Z86.73 Personal history of transient ischemic attack (TIA), and cerebral infarction without residual deficits; Z88.0 Allergy status to penicillin; E11.9 Type 2 diabetes mellitus without complications; Z68.31 Body mass index [BMI] 31.0-31.9, adult
CPT/HCPCS: 80048; 80053; 81001; 82962; 83735; 85025; 85610; 86850; 86900; 86901; 86920; 87086; 88104; 88305; 88309; J0131; J0690; J1100; J1644; J1815; J2250; J2270; J2274; J2370; J2405; J2765; J2795; J3010; J3480; J7120

== ENCOUNTER 2017-01-28 21:21 | Emergency (ER) | payer OTHER ==
[~2017-01-28] VITALS: Ht 157.5 cm; Wt 73.0 kg
[~2017-01-28 21:21] MED LIST changes: -CEFAZOLIN 2 GM/50 ML (PMX) 50 ML IVPB SCH; -D5-NS + KCL 20 MEQ 1,000 ML IV SCH; -Metronidazole 500 MG in NS 100 ML IVPB SCH
[2017-01-28 21:32] VITALS: Ht 157.5 cm; Wt 73.0 kg
--- NOTE | 2017-01-29 02:26 | ERD ---
ER Documentation Chief Complaint Date/Time DATE: 01/29/17 TIME: 02:23 Chief Complaint dark colored urine since 2 hours ago HPI 61-year-old female presents here in emergency department for complaints of some suprapubic pressure and discoloration, dark colored urine that she noticed 2 hours prior to arrival. Patient has recently changed urinary catheter, patient had a hysterectomy and 13 days ago, patient recently changed catheter yesterday. Patient is complaining of some dysuria, pressure type pain 4/10 scale , and accompanies with urinary urgency.patient denies any fever or chills. ROS All systems reviewed and are negative except as per history of present illness. Medications Home Meds Reported Medications Glipizide* (Glipizide*) 10 Mg Tablet, 20 MG PO BID, TAB 12/12/16 Sitagliptin* (Januvia*) 100 Mg Tablet, 100 MG PO DAILY, #30 TAB 12/12/16 Pioglitazone Hcl* (Pioglitazone Hcl*) 30 Mg Tablet, 30 MG PO DAILY, TAB 12/12/16 Nitrofurantoin Monohyd Macrocr* (Macrobid*) 100 Mg Capsr, 100 MG PO BID, CAP 12/12/16 Allergies Allergies: Coded Allergies: No Known Allergy (Verified , 01/17/17) PMhx/Soc History of Surgery: Yes (HERNIA REPAIR , hysterectomy) Anesthesia Reaction: No Hx Neurological Disorder: No Hx Respiratory Disorders: No Hx Cardiac Disorders: No Hx Psychiatric Problems: No Hx Miscellaneous Medical Probl: Yes (ENDOMETRIAL CANCER DM) Hx Alcohol Use: No Hx Substance Use: No Hx Tobacco Use: No Smoking Status: Never smoker FmHx Family History: diabetes Physical Exam Vitals Vital Signs Date Time Temp Pulse Resp B/P Pulse Ox O2 Delivery O2 Flow Rate FiO2 01/28/17 21:32 97.8 91 20 153/68 98 Physical Exam GENERAL: The patient is well developed and appropriate for usual state of health, in no apparent distress. CHEST: Clear to auscultation bilaterally. There are no rales, wheezes or rhonchi. HEART: Regular rate and rhythm. No murmurs, clicks, rubs or gallops. No S3 or S4. ABDOMEN: Soft, nontender and nondistended. Good bowel sounds. No rebound or guarding. No gross peritonitis. No gross organomegaly or masses. No Noe sign or McBurney point tenderness. BACK: No midline or flank tenderness. EXTREMITIES: Equal pulses bilaterally. There is no peripheral clubbing, cyanosis or edema. No focal swelling or erythema. Full range of motion. Grossly neurovascularly intact. NEURO: Alert and oriented. Cranial nerves 2-12 intact. Motor strength in all 4 extremities with 5/5 strength. Sensation grossly intact. Normal speech and gait. SKIN: There is no apparent rash or petechia. The skin is warm and dry. HEMATOLOGIC AND LYMPHATIC: There is no evidence of excessive bruising or lymphedema. No gross cervical, axillary, or inguinal lymphadenopathy. Results 24 hrs Laboratory Tests Test 01/29/17 03:12 Urine Color RED Urine Clarity CLOUDY Urine pH 5.0 Urine Specific [place] 1.017 Urine Ketones NEGATIVEmg/dL Urine Nitrite NEGATIVEmg/dL Urine Bilirubin NEGATIVEmg/dL Urine Urobilinogen NEGATIVEmg/dL Urine Leukocyte Esterase 2+[place]/ul Urine Microscopic RBC > 182/HPF Urine Microscopic WBC 10/HPF Urine Calcium Oxalate Crystals MANY/HPF Urine Mucus FEW/HPF Urine Hemoglobin 3+mg/dL Urine Glucose NEGATIVEmg/dL Urine Total Protein 2+mg/dl Current Medications Medications (Trade) Dose Ordered Sig/Mira Route PRN Reason Start Time Stop Time Status Last Admin Dose Admin Ceftriaxone Sodium (Rocephin) 1 gm ONCE ONCE IM 01/29/17 04:00 01/29/17 04:01 UNV IM Rocephin was given here in the ER for treatment for UTI Procedures/MDM Medical Decision Making: Patients symptoms are consistent with urinary tract infection. There is low suspicion for pyelonephritis. There is low suspicion for abdominal emergencies at this time. Patients abdominal exam is normal. There is low suspicion for sepsis. Patient appears well and is hemodynamically stable. Disposition: Home. Stable Prescription Ciprofloxacin, Pyridium Instructions: Patient is advised to take medications as prescribed. Patient is advised to rest, increase fluid intake and do good catheter hygiene. Patient is advised that if symptoms are worse, severe abdominal pain, uncontrolled vomiting , high fever, severe flank pain, worst signs and symptoms, to return to the emergency department immediately. Otherwise, patient can follow up with primary care doctor in 5-7 days. Departure Diagnosis: Primary Impression: UTI (urinary tract infection) Urinary tract infection type: acute cystitis Hematuria presence: with hematuria Qualified Code: N30.01 - Acute cystitis with hematuria Condition: Stable Patient Instructions: Understanding Urinary Tract Infections (UTIs) Additional Instructions: Patient is advised to take medications as prescribed. Patient is advised to rest , increase fluid intake and do good catheter hygiene. Patient is advised that if symptoms are worse, severe abdominal pain, uncontrolled vomiting, high fever , severe flank pain, worst signs and symptoms, to return to the emergency department immediately. Otherwise, patient can follow up with primary care doctor in 5-7 days. MIKE SAUER NP Jan 29, 2017 02:26
[2017-01-29 03:48] LABS: ADD UMIC YES; UR ASCORBIC ACID NEGATIVE (NEGATIVE); UR BILIRUBIN (Dip) NEGATIVE (NEGATIVE); UR BLOOD (Dip) 3+ mg/dL (NEGATIVE); UR CLARITY CLOUDY (CLEAR); UR COLOR RED (YELLOW); UR GLUCOSE (Dip) NEGATIVE (NEGATIVE); UR KETONES (Dip) NEGATIVE (NEGATIVE); UR LEUKOCYTE ESTERASE (Dip) 2+ Leu/ul (NEGATIVE); UR MUCUS FEW /HPF (NONE SEEN); UR NITRITE (Dip) NEGATIVE (NEGATIVE); UR RBC > 182 /HPF (0-5); UR SPECIFIC GRAVITY (Dip) 1.017 (1.003-1.030); UR TOTAL PROTEIN (Dip) 2+ mg/dl (NEGATIVE); UR UROBILINOGEN (Dip) NEGATIVE (NEGATIVE)
[2017-01-29] MEDS ORDERED: PHEN-538 PO (03:59)
[2017-01-29] MEDS ORDERED: CIPR500T4 PO (03:59)
[2017-01-29] MEDS ORDERED: CEFTRIAXONE 1 GM INJ IM ONE (04:00)
[2017-01-29 04:33] VITALS: BP 133/68; PULSE 77; RESP 20; TEMP 98.3
== END 2017-01-29 04:35 | disposition home or self-care (01) ==
LOC: FTE 21:21
DX: N30.01 Acute cystitis with hematuria (principal); E11.9 Type 2 diabetes mellitus without complications; Z85.42 Personal history of malignant neoplasm of other parts of uterus; Z79.84 Long term (current) use of oral hypoglycemic drugs
CPT/HCPCS: 81001; 87086; 96372; J0696; Z7502

== ENCOUNTER 2017-03-03 09:10 | Day surgery (SDC) | payer OTHER ==
[~2017-03-03] VITALS: Ht 152.4 cm; Wt 71.4 kg
[~2017-03-03 09:10] MED LIST changes: +CIPR500T4 PO; +PHEN-538 PO
[2017-03-03] MEDS ORDERED: POLYMYXIN/BACITRACIN 1L IRRIG ONE (09:31)
[2017-03-03 09:46] VITALS: Ht 152.4 cm; Wt 71.4 kg
[2017-03-03 09:49] VITALS: BP 152/70; PULSE 91; RESP 19
[2017-03-03] MEDS ORDERED: FENTAnyl 50 MCG/ML VIAL ONE (09:51)
[2017-03-03] MEDS ORDERED: CEFAZOLIN 2 GM/50 ML (PMX) 50 ML IVPB ONE (09:51)
[2017-03-03] MEDS ORDERED: MIDAZOLAM 1 MG/ML 2 ML INJ ONE ×2 (09:51→10:22)
[2017-03-03] MEDS ORDERED: LIDOCAINE 1% (MDV) 20 ML INJ ONE (09:51)
[2017-03-03] MEDS ORDERED: HEPARIN 1000 UNITS/ML 10 ML INJ ONE (10:32)
--- NOTE | 2017-03-03 10:44 | SIPON ---
Date/Time of Note Date/Time of Note DATE: 03/03/17 TIME: 10:43 Operative Report Preoperative Diagnosis uterine ca Postoperative Diagnosis same Operation/Procedure Performed elder cath placement R internal jugular vein Surgeon see signature line bankruptcy assistant none Anesthesia: MAC Estimated blood loss: minimal Transfusion Required none Specimen none Grafts/Implants none Complications none CLARIBEL BORJA MD Mar 03, 2017 10:44
[2017-03-03 11:14] VITALS: BP 150/66; PULSE 84; RESP 18
--- NOTE | 2017-03-03 11:57 | OPR ---
DATE OF OPERATION: 03/03/2017 PREOPERATIVE DIAGNOSIS: Uterine cancer. POSTOPERATIVE DIAGNOSIS: Uterine cancer. PROCEDURE PERFORMED: Insertion of right internal jugular vein Port-A-Cath using ultrasound and fluo roscopic guidance. SURGEON: Claribel Jensen MD ANESTHESIA: Local with sedation. ESTIMATED BLOOD LOSS: Minimal. COMPLICATIONS: No intraprocedural complications. INDICATIONS: A 61-year-old woman. She has uterine cancer status. She is status post hysterectomy. She needs a Port-A-Cath for chemotherapy. DESCRIPTION OF PROCEDURE: The patient was brought to the slabber and placed on the table in supin e position. Right neck and chest wall were prepped and draped in the usual sterile fashion. I bega n by infiltrating about 20 mL of 1% Xylocaine over the chest wall below the clavicle and up on to th e neck using a 25-gauge needle. I then made an incision about 2.5 cm long and several centimeters b elow the clavicle on the right side and created a little pocket below the incision for the port. I then used ultrasound guidance to identify the right internal jugular vein. I entered the vein using a micropuncture needle and a 0.018 wire was inserted through the needle into the vein. Micropunctu re sheath was advanced over the wire to the vein. I then advanced an 0.035 J-wire down through the heart into the inferior vena cava. I then made an incision over the wire. I then placed a large pe el away sheath over the wire and into the right atrium. I then placed the end of the catheter throu gh the peel away sheath leaving the tip in the right atrium and then peeled the sheath away. I then used a metal tunneler to tunnel between the 2 incisions and brought the catheter through the tunnel . I cut it to the appropriate length. I then attached it to the port and anchored it with a little connector. It flushed easily and there was good backflow from the port. Using a Foster needle, I kimberly borja put the port in the pocket and under fluoroscopy I confirmed that it was in good position. Ther e were no kinks anywhere. I then attached the port to the pocket using two 3-0 Vicryl sutures and kimberly borja closed the incision using 3-0 Vicryl subcutaneous suture and then a 4-0 Monocryl sutures was use d to close the skin incision. Sterile dressing was applied and the patient was transferred to recov raul room in stable condition. She tolerated the procedure well without any complication. Ports dimitri l be ready to use tomorrow. Dictated By: CLARIBEL LU/ERIC Conf#: [id number] DID#: [id number] CC: BISMARK WESLEY MD;*EndCC*
[2017-03-03] MEDS ORDERED: ACETAMINOPHEN 500 MG TAB PO STA (12:20)
[2017-03-03] MEDS ORDERED: ACETAMINOPHEN 500 MG TAB PO SCH (12:34)
== END 2017-03-03 12:45 | disposition home or self-care (01) ==
LOC: SDS 09:10
PROVIDERS: ATTEND Surgery Vascular Surgery
DX: Z45.2 Encounter for adjustment and management of vascular access device (principal); C55 Malignant neoplasm of uterus, part unspecified; E11.9 Type 2 diabetes mellitus without complications
CPT/HCPCS: 36561; 82962; J0690; J1644; J2250; J3010; Z7610

== ENCOUNTER 2018-09-29 07:35 | Day surgery (SDC) | payer OTHER ==
[~2018-09-29] VITALS: Ht 153.7 cm; Wt 68.1 kg
[~2018-09-29 07:35] MED LIST changes: -CIPR500T4 PO; -GLIP-95 PO; +GLIP10TA14 PO; -NITR-58 PO; -PHEN-538 PO; -PIOG30TA26 PO; +SITA100T11 PO; -SITA100T8 PO
[2018-09-29 08:00] VITALS: BP 127/66; PULSE 92; RESP 16; Ht 153.7 cm; Wt 68.1 kg
[2018-09-29] MEDS ORDERED: GLIP10TA14 PO (08:26)
[2018-09-29] MEDS ORDERED: SITA100T11 PO (08:26)
[2018-09-29] MEDS ORDERED: EMPA10TA PO (08:27)
[2018-09-29] MEDS ORDERED: LIDOCAINE 1%/EPI (1:100,000) (MDV) 20 ML ONE (10:36)
[2018-09-29] MEDS ORDERED: FENTAnyl 50 MCG/ML VIAL ONE (10:36)
[2018-09-29 12:35] VITALS: BP 110/52; PULSE 82; RESP 16
== END 2018-09-29 13:25 | disposition home or self-care (01) ==
LOC: RAD 07:35 → SDS 07:35 → RAD 13:25
PROVIDERS: ATTEND Internal Medicine Hematology & Oncology
DX: Z45.2 Encounter for adjustment and management of vascular access device (principal); Z85.89 Personal history of malignant neoplasm of other organs and systems
CPT/HCPCS: 82962; 88300; J3010